=== PATIENT | female | born 1965 | race Caucasian/White ===

== ENCOUNTER → 2021-12-19 14:53 | Outpatient (BNVA) | payer MEDICAID, SELFPAY | PROVIDERS: Family Provider Family Medicine; PCP Orthopaedic Surgery; Visit Provider Internal Medicine Cardiovascular Disease | DX: R07.9 Chest pain, unspecified (principal); F17.210 Nicotine dependence, cigarettes, uncomplicated; I25.10 Atherosclerotic heart disease of native coronary artery without angina pectoris; I73.9 Peripheral vascular disease, unspecified | CPT/HCPCS: 93005; 99214 ==

== ENCOUNTER → 2022-02-19 14:35 | Outpatient (BNVA) | payer MEDICAID, SELFPAY | PROVIDERS: Family Provider Family Medicine; PCP Nurse Practitioner Family; Visit Provider Internal Medicine Cardiovascular Disease | DX: I25.10 Atherosclerotic heart disease of native coronary artery without angina pectoris (principal); I10 Essential (primary) hypertension; R07.9 Chest pain, unspecified; I73.9 Peripheral vascular disease, unspecified; E78.5 Hyperlipidemia, unspecified; I65.29 Occlusion and stenosis of unspecified carotid artery; F17.210 Nicotine dependence, cigarettes, uncomplicated | CPT/HCPCS: 99214 ==

== ENCOUNTER 2022-03-07 09:30 | Outpatient (CLI) | payer MEDICAID, SELFPAY ==
[2022-03-07 09:38] VITALS: BMI 26.9
--- NOTE | 2022-03-07 09:56 | ECG_ITS ---
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 Interpretive Statements NAME OF STUDY: LEXISCAN SESTAMIBI STRESS TEST INDICATION: Chest Pain; Coronary Artery Disease PROCEDURE: At the baseline, the blood pressure was 164/85 mmHg, oxygen saturation 97% with a heart rate of 74 bpm. The electrocardiogram showed normal sinus rhythm, normal axis. ST and T wave abnormality consider anterior ischemia. The Lexiscan was infused over a period of 20 seconds. A total of 0.4 milligrams of Lexiscan was infused. The stress phase was continued for a total of 5 minutes. Heart rate at the end of the stress phase was 110 bpm, oxygen saturation 95% with a blood pressure of 165/81 mmHg. The EKG at the peak infusion revealed sinus tachycardia with 1/[address] depression in inferolateral leads. Sestamibi was injected 20 seconds after the Lexiscan infusion. Blood pressure at the end of the recovery phase was 169/82 mmHg, oxygen saturation 91% with a heart rate of 100 beats per minute. CONCLUSION: 1. Equivocal EKG changes with the LexiScan infusion in inferolateral leads. 2. No LexiScan induced chest pain or cardiac arrhythmia. 3. Baseline hypertension with normal blood pressure and heart rate response. 4. Sestamibi/sestamibi perfusion scan pending; see separate report. Electronically Signed On 03-10-2022 12:13:53 CDT by Jeanne Blake M.D. [id number]
--- NOTE | 2022-03-07 09:57 | NMCV_ITS ---
NM lacey perf SPECT r/s* [id number] Rabia Collazo Age: 56 Gender: F : 1965 Exam Date: 03/07/2022 11:11 Ordering Phys: Jeanne Blake MD ([email or web address]) Technologist: LILY Ashraf Exam Location: [facility] Indications: CHEST PAIN STRESS TEST Please see separate stress test report in [facility] for full findings IMAGE PROTOCOL Rest/Stress 1 Lexiscan Day Radiopharmaceutical Dose (mCi) Administration Site Administered by Rest: Tc-99m 10.4 IV LILY Edwards Sestamibi Stress:Tc-99m 32.6 IV LILY Edwards Sestamibi Rest: 07-Mar-2022 60 Discovery 630 Stress: 07-Mar-2022 30 Discovery 630 0.4mg Lexiscan. Images obtained in supine and prone position. SPECT RESULTS Technical Quality: Excellent Raw Data Analysis: Normal Image Corrections: No attenuation or motion correction applied Summed Stress Score: 1 Summed Rest Score: 8 Summed Difference Score: 0 PERFUSION FINDINGS Small sized perfusion abnormality of mild severity of mid inferolateral, apical lateral, apical anterior and apical inferior tai on rest images with improved tracer uptake of stress images. FUNCTIONAL RESULTS (calculated via Gated SPECT) Stress Image LV EF (%): 77 Stress EDV (mL):44 TID: 0.88 Stress ESV (mL):10 FUNCTIONAL FINDINGS: The left ventricle is normal in size. Transient Ischemia Dilatation of 0.88. There is normal left ventricular systolic function. The left ventricular ejection fraction is normal with a value of 77%. There is normal left ventricular wall thickening. IMPRESSIONS 1. Myocardial perfusion imaging is normal. Attenuation artifact noted in inferolatetral and apical tai. 2. Overall left ventricular systolic function is normal without regional wall motion abnormalities, LVEF=77%. 3. EKG portion of the study will be reported separately. 4. No coronary ischemia based on this study. Jeanne Blake MD (Electronically Signed) Final Date: 09 March 2022 20:35 S
--- NOTE | 2022-03-07 10:15 | USCV_ITS ---
Rabia Collazo Age: 56 Gender: F : 1965 Exam Date: 03/07/2022 10:16 Ordering Phys: Jeanne Blake MD ([email or web address]) Technologist: VERONICA Exam Location: [facility] [place] Indication: Chest Pain BP: 124 / 64 HR: 91 Rhythm: Sinus Technical Quality: Adequate MEASUREMENTS (Male / Female) Normal Values 2D ECHO LV Diastolic Diameter PLAX 4.0 cm 4.2 - 5.9 / 3.9 - 5.3 cm LV Systolic Diameter PLAX 3.2 cm IVS Diastolic Thickness 0.7 cm 0.6 - 1.0 / 0.6 - 0.9 cm IVS Systolic Thickness 0.7 cm LVPW Diastolic Thickness 1.0 cm 0.6 - 1.0 / 0.6 - 0.9 cm LVPW Systolic Thickness 1.1 cm LVOT Diameter 2.0 cm LV Ejection Fraction 2D Teich 40.1 % LV Ejection Fraction MOD 2C 69.0 % LV Ejection Fraction 2C AL 70.3 % LA Diameter 3.0 cm RA Width 1.9 cm RA Height 2.5 cm Aorta at Sinotubular Diameter 2.4 cm M-MODE Aortic Annulus Diameter 2.3 cm LA Ao Ratio MM 1.3 MV E Point Septal Separation 0.3 cm DOPPLER AV Peak Velocity 141.0 cm/s LVOT Peak Velocity 98.0 cm/s AV Area Cont Eq vti 2.2 cm squared AV Area Cont Eq pk 2.2 cm squared MV Area PHT 5.0 cm squared Mitral E to A Ratio 0.8 MV E' Velocity 70.0 cm/s Mitral E to MV E' Ratio 21.2 Mitral E to LV E' Lateral Ratio 21.2 Mitral E to LV E' Septal Ratio 21.6 TR Peak Velocity 269.0 cm/s TR Peak Gradient 28.9 mmHg Right Atrial Pressure 3.0 mmHg Pulmonary Artery Systolic Pressu 31.9 mmHg PV Peak Velocity 79.0 cm/s RV Acceleration Time 0.2 s RV Ejection Time 0.3 s RV AcT/ET 0.5 FINDINGS Left Ventricle Normal left ventricular size, systolic function and wall thickness, with no regional wall motion abnormalities. Left ventricular ejection fraction is estimated at 60 %. Grade II diastolic dysfunction, moderately elevated filling pressures. Right Ventricle Normal right ventricular size and systolic function. Right ventricular systolic pressure 31.9 mmHg. Right Atrium Normal right atrial size. Left Atrium Normal left atrial size. Mitral Valve Structurally normal mitral valve. No mitral valve stenosis. Trace mitral valve regurgitation. Aortic Valve Aortic valve not well visualized. No aortic valve stenosis. Trace aortic valve regurgitation. Tricuspid Valve Structurally normal tricuspid valve. No tricuspid valve stenosis. Trace to mild tricuspid valve regurgitation. Pulmonic Valve Pulmonic valve not well visualized. No pulmonary valve stenosis. No pulmonary valve regurgitation. Pericardium No pericardial effusion. Aorta Normal size aortic root. IVC Inferior vena cava not visualized. CONCLUSIONS 1. Normal left ventricular size, systolic function and wall thickness, with no regional wall motion abnormalities. Left ventricular ejection fraction is estimated at 60 %. Grade II diastolic dysfunction, moderately elevated filling pressures. 2. Normal right ventricular size and systolic function. 3. Trace to mild tricuspid valve regurgitation. 4. Pulmonary artery pressure estimated at 31.9 mmHg 5. When compared to study dated 12/17/2017, there may not have been any significant change. Jeanne Blake MD (Electronically Signed) Final Date: 09 March 2022 17:37 S
[2022-03-07 11:53] VITALS: BP 169/82; PULSE 99
[2022-03-07] MEDS: regadenoson 0.4 Mg/5 ml Syringe IVP (11:53)
== END 2022-03-07 09:31 | disposition home or self-care (01) ==
LOC: CDL 09:31
PROVIDERS: PCP Nurse Practitioner Family; Visit Provider Internal Medicine Cardiovascular Disease
DX: R07.9 Chest pain, unspecified (principal); I25.10 Atherosclerotic heart disease of native coronary artery without angina pectoris
CPT/HCPCS: 78452; 93017; 93306; A9500; J2785

== ENCOUNTER → 2022-08-26 14:43 | Outpatient (BNVA) | payer MEDICAID, SELFPAY | PROVIDERS: PCP Nurse Practitioner Family; Visit Provider Internal Medicine Cardiovascular Disease | DX: R07.9 Chest pain, unspecified (principal); I25.10 Atherosclerotic heart disease of native coronary artery without angina pectoris; I73.9 Peripheral vascular disease, unspecified; E78.5 Hyperlipidemia, unspecified; I65.29 Occlusion and stenosis of unspecified carotid artery; I10 Essential (primary) hypertension; F17.210 Nicotine dependence, cigarettes, uncomplicated | CPT/HCPCS: 99214 ==